=== PATIENT | female | born 1950 | race Caucasian/White ===

== ENCOUNTER 2017-08-14 08:23 | Day surgery (SDC) | payer MEDICARE, BC ==
[~2017-08-14 08:23] MED LIST: Cefuroxime 10 MG/ML SYRINGE EYELF SCH; Lidocaine 1% PF 2 ML SDV INJECT SCH; Pilocarpine 4% Ophth Soln 15 ML Bot EYELF SCH
[2017-08-14] MEDS: Ofloxacin 0.3% Ophth Soln 5 ML Bottle EYELF SCH ×3 (09:11→10:44)
[2017-08-14] MEDS: Brimonidine 0.2% Ophth Soln 5 ML Bottle EYELF SCH ×3 (09:16→10:44)
--- NOTE | 2017-08-14 09:19 | PCM.PREANE ---
Preanesthetic Assessment - Anesthesia/Transfusion/Family Hx Anesthesia History: Prior Anesthesia Without Reaction Family History of Anesthesia Reaction: No Transfusion History: No Prior Transfusion(s) - Review of Systems General: No Symptoms Pulmonary: No Symptoms Cardiovascular: No Symptoms Gastrointestinal: No Symptoms Neurological: No Symptoms Other: Reports: Thyroid Problems - Physical Assessment NPO Status Date: 08/13/17 NPO Status Time: 00:00 Pulse: 66 O2 Sat by Pulse Oximetry: 98 Respiratory Rate: 16 Blood Pressure: 141/80 Temperature: 36.4 C Height: 1.57 m Weight: 65.771 kg ASA Class: 2 Mental Status: Alert & Oriented x3 Airway Class: Mallampati = 1 Dentition: Reports: Normal Dentition, Bridge, Missing Tooth/Teeth, Caries Thyro-Mental Finger Breadths: 3 Mouth Opening Finger Breadths: 3 ROM/Head Extension: Full Lungs: Clear to Auscultation, Normal Respiratory Effort Cardiovascular: Regular Rate, Regular Rhythm - Allergies Allergies/Adverse Reactions: Allergies Allergy/AdvReac Type Severity Reaction Status Date / Time codeine Allergy Cannot Verified 08/13/17 12:01 Remember erythromycin base Allergy Cannot Verified 08/13/17 12:01 Remember nitrofurantoin Allergy Cannot Verified 08/13/17 12:01 [From Macrodantin] Remember Penicillins Allergy Cannot Verified 08/13/17 12:01 Remember Sulfa (Sulfonamide Allergy Cannot Verified 08/13/17 12:01 Antibiotics) Remember sumatriptan [From Imitrex] Allergy Cannot Verified 08/13/17 12:01 Remember - Blood Blood Available: No Product(s) Available: None - Anesthesia Plan Pre-Op Medication Ordered: None - Acknowledgements Anesthesia Type Planned: MAC Pt an Appropriate Candidate for the Planned Anesthesia: Yes Alternatives and Risks of Anesthesia Discussed w Pt/Guardian: Yes Pt/Guardian Understands and Agrees with Anesthesia Plan: Yes PreAnesthesia Questionnaire Gastrointestinal History: Reports: GERD - HOME MEDS Home Medications: Home Meds Calcium Carb/Magnesium Cmb #10 [Taurus-Mag] 1 tab PO DAILY 08/13/17 [History] Cholecalciferol (Vitamin D3) [Vitamin D3] 2,000 unit PO DAILY 08/13/17 [History] Denosumab [Prolia] 1 dose SQ ASDIRECTED 08/13/17 [History] Levothyroxine Sodium [Synthroid] 125 mcg PO DAILY 08/13/17 [History] Losartan/Hydrochlorothiazide [Hyzaar 50-12.5 Tablet] 1 tab PO DAILY 08/13/17 [ History] Pravastatin [Pravachol] 40 mg PO DAILY 08/13/17 [History] Vitamin B Complex & Vit C No.4 [Super B Complex] 1 tab PO DAILY 08/13/17 [ History] - CURRENT (IN HOUSE) MEDS Current Meds: Current Medications Brimonidine Tartrate (Alphagan 0.2% Ophth Soln) 0 ml EYELF ASDIRECTED DYAN Stop: 08/14/17 18:00 Cefuroxime Sodium (Zinacef) 0 mg EYELF ASDIRECTED DYAN Stop: 08/14/17 18:00 Lidocaine HCl (Xylocaine-Mpf 1%) 10 ml INJECT ASDIRECTED DYAN Stop: 08/14/17 18:00 Ofloxacin (Ocuflox 0.3% Ophth Soln) 0 ml EYELF ASDIRECTED DYAN Stop: 08/14/17 18:00 Last Admin: 08/14/17 09:11 Dose: 1 drop Phenylephrine HCl (Darrick-Synephrine 2.5% Ophth Soln) 0 ml EYELF ASDIRECTED DYAN Stop: 08/14/17 18:00 Pilocarpine HCl (Pilocar 4% Ophth Soln) 0 ml EYELF ASDIRECTED DYAN Stop: 08/14/17 18:00 Tetracaine HCl (Tetracaine 0.5% Steri-Unit Natasha) 0 ml EYELF ASDIRECTED DYAN Stop: 08/14/17 18:00 Tropicamide (Mydriacyl 1% Ophth Soln) 0 ml EYELF ASDIRECTED DYAN Stop: 08/14/17 18:00
[2017-08-14] MEDS: Phenylephrine 2.5% Ophth Soln 2 ML Bot EYELF SCH ×5 (09:21→10:24)
[2017-08-14] MEDS: Tetracaine HCl/PF 0.5% 4 ML Bottle EYELF SCH ×2 (10:18→10:34)
--- NOTE | 2017-08-14 10:50 | PCM48HPAN ---
Post Anesthesia Note - EVALUATION WITHIN 48HRS OF ANESTHETIC Vital Signs in Normal Range: Yes Patient Participated in Evaluation: Yes Respiratory Function Stable: Yes Airway Patent: Yes Cardiovascular Function Stable: Yes Hydration Status Stable: Yes Pain Control Satisfactory: Yes Nausea and Vomiting Control Satisfactory: Yes Mental Status Recovered: Yes
== END 2017-08-14 10:57 | disposition home or self-care (01) ==
LOC: JD.SDS 08:23
PROVIDERS: ATTEND Ophthalmology
DX: H26.9 Unspecified cataract (principal); I10 Essential (primary) hypertension; K21.9 Gastro-esophageal reflux disease without esophagitis; E78.00 Pure hypercholesterolemia, unspecified; F17.210 Nicotine dependence, cigarettes, uncomplicated; Z79.899 Other long term (current) drug therapy
CPT/HCPCS: 66984; C1780; J0697; A9270-GY